=== PATIENT | female | born 1955 | race Caucasian/White ===

== ENCOUNTER 2018-01-01 23:25 | Emergency (ER) | payer SELFPAY ==
[2018-01-02] MEDS ORDERED: ULTRAM ONE ×2 (02:03→04:18)
[2018-01-02 02:09] VITALS: BP 176/104
[2018-01-02] MEDS ORDERED: ULTRAM PO ONE ×2 (02:09→04:26)
--- NOTE | 2018-01-02 04:58 | Emergency Department Report ---
ED Upper Extremity Inj HPI - General Chief Complaint: Extremity Problem,Nontraumatic Stated Complaint: ARM PAIN Time Seen by Provider: 01/02/18 04:44 Source: family Mode of arrival: Ambulatory Limitations: No Limitations - History of Present Illness Initial Comments: Patient presents with 1 day of right shoulder pain. Patient states that she was sleeping on her right shoulder hurting and woke up to it hurting. It has progressively gotten worse throughout the day. Nonradiating. Worse with movement. Patient has remote history of rotator cuff surgery. Denies falling or anything hitting her shoulder. - Related Data Home Medications Medication Instructions Recorded Confirmed Last Taken Aspirin [Aspirin TAB] PRN 12/21/14 12/21/14 12/20/14 Insulin NPH, Human [NovoLIN N] 13 units HS 12/21/14 12/21/14 12/20/14 NovoLIN N 19 units 12/21/14 12/21/14 12/21/14 metFORMIN [Glucophage] 500 mg PO BID 12/21/14 12/21/14 12/21/14 Previous Rx's Medication Instructions Recorded Last Taken Type Ciprofloxacin HCl [Cipro] 500 mg PO Q12H #20 tab 12/21/14 Unknown Rx Clindamycin [Clindamycin Oral] 150 mg PO QID #40 capsule 12/21/14 Unknown Rx traMADol [Ultram] 50 mg PO Q6HR PRN #20 tablet 12/21/14 Unknown Rx Diclofenac Sodium [Voltaren] 100 gm TP TID PRN #1 bottle 01/02/18 Unknown Rx traMADol [Ultram] 50 mg PO Q6HR PRN #8 tablet 01/02/18 Unknown Rx Allergies Allergy/AdvReac Type Severity Reaction Status Date / Time Penicillins Allergy Rash Verified 08/30/13 16:44 ED Review of Systems ROS: Stated complaint: ARM PAIN Other details as noted in HPI Musculoskeletal: arthralgia, myalgia ED Past Medical Hx - Past Medical History Previous Medical History?: Yes Hx Diabetes: Yes - Surgical History Past Surgical History?: Yes Additional Surgical History: x 1 - Social History Smoking Status: Never Smoker Substance Use Type: None - Medications Home Medications: Home Medications Medication Instructions Recorded Confirmed Last Taken Type Aspirin [Aspirin TAB] PRN 12/21/14 12/21/14 12/20/14 History Ciprofloxacin HCl [Cipro] 500 mg PO Q12H #20 tab 12/21/14 Unknown Rx Clindamycin [Clindamycin Oral] 150 mg PO QID #40 capsule 12/21/14 Unknown Rx Insulin NPH, Human [NovoLIN N] 13 units HS 12/21/14 12/21/14 12/20/14 History NovoLIN N 19 units 12/21/14 12/21/14 12/21/14 History metFORMIN [Glucophage] 500 mg PO BID 12/21/14 12/21/14 12/21/14 History traMADol [Ultram] 50 mg PO Q6HR PRN #20 tablet 12/21/14 Unknown Rx Diclofenac Sodium [Voltaren] 100 gm TP TID PRN #1 bottle 01/02/18 Unknown Rx traMADol [Ultram] 50 mg PO Q6HR PRN #8 tablet 01/02/18 Unknown Rx ED Physical Exam - General Limitations: No Limitations General appearance: alert, in no apparent distress - Extremities Exam Extremities exam: Present: other (right shoulder with limited range of motion. Lateral posterior shoulder tenderness. No obvious deformity. Right hand is neurovascularly intact. Lateral upper extremity strength is 5 out of 5. No neck pain.) ED Course Vital Signs 01/01/18 01/02/18 23:32 02:09 Temperature 99.3 F Pulse Rate 95 H 91 H Respiratory 18 18 Rate Blood Pressure 188/106 Blood Pressure 176/104 [Right] O2 Sat by Pulse 96 98 Oximetry ED Medical Decision Making - Radiology Data Radiology results: image reviewed - Medical Decision Making 62-year-old female with past medical history of remote rotator cuff injury presents to the ER with right shoulder pain. Vital signs are negative for hypertension with a systolic blood pressure of 180. Likely this is secondary to pain since patient has no history of high blood pressure. X-rays are unremarkable. Likely patient has suffered a rotator cuff tendinitis. She denies any specific injury to trigger this. Patient will be given radiating stretching exercises and Rice therapy. She has been prescribed with pharyngeal first shoulder. She'll follow-up with the [facility] for reevaluation. A possible lung nodule was seen on the patient's shoulder x-ray. I will have her follow-up with the [facility] [place] for further evaluation of this nodule - Differential Diagnosis tendinitis, bursitis, dislocation, subluxation, fracture, contusion Critical care attestation.: If time is entered above; I have spent that time in minutes in the direct care of this critically ill patient, excluding procedure time. ED Disposition Clinical Impression: Right shoulder pain, Lung nodule seen on imaging study Disposition: TO HOME OR SELFCARE Is pt being admited?: No Does the pt Need Aspirin: No Condition: Stable Instructions: Rotator Cuff Tendinitis (ED) Additional Instructions: Apply the voltaren gel to your shoulder for pain relief. Only wear the sling for 24 hours. Follow up with the [facility] for re-evaluation of your shoulder. Take 800 mg motrin and/or 975 mg tylenol every 6 hours as needed for pain relief. Make sure that you do the exercises listed in the rotator cuff tendinitis packet. A lung nodule was seen on your shoulder x-ray. Please follow up with the [facility] to have a CT scan of your chest done in the next 3-4 months for further evaluation. Prescriptions: Diclofenac Sodium [Voltaren] 100 gm TP TID PRN #1 bottle PRN Reason: Pain, Moderate (4-6) traMADol [Ultram] 50 mg PO Q6HR PRN #8 tablet PRN Reason: Pain Referrals: [facility] [Outside] - 3-5 Days
--- NOTE | 2018-01-02 05:20 | XRay Report ---
FINAL REPORT EXAM: XR SHOULDER 2+V RT HISTORY: Rt shoulder pain, no trauma COMPARISONS: None. FINDINGS: Three views right shoulder Right glenohumeral joint appears intact. A 7 millimeter calcification is amorphous in morphology and is present adjacent to the superior lateral humeral head. 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 Acromioclavicular and coracoclavicular intervals are within normal limits. No displaced fractures. Incomplete evaluation of the adjacent right lung is remarkable for 5-6 millimeter nodular opacity projecting over the right upper lung between the posterior 5th and 6th ribs. IMPRESSION: Hydroxyapatite deposition likely within the supraspinatus may account for patient's pain. Mild acromioclavicular osteoarthrosis. Possible right upper lung nodule measuring up to [address]imeters. Consider follow-up CT.
== END 2018-01-02 06:13 | disposition home or self-care (01) ==
LOC: EDBD 23:25 → ED 23:25
DX: M25.511 Pain in right shoulder (principal); R91.1 Solitary pulmonary nodule; E11.9 Type 2 diabetes mellitus without complications; Z79.4 Long term (current) use of insulin; Z79.84 Long term (current) use of oral hypoglycemic drugs; Z88.0 Allergy status to penicillin
CPT/HCPCS: 99284